=== PATIENT | female | born 1985 | race Caucasian/White ===

== ENCOUNTER 2016-09-14 10:04 | Day surgery (SDC) | payer BC ==
--- NOTE | ~2016-09-14 | EGD ---
EGD REPORT [facility] [address] [address] NAME: RONA GERONIMO : [birth year] STATUS : REG [facility]#: [id number] AGE: 31 ADM/REG DATE : 09/14/16 MR#: [id number] REPORT SERV DATE: 09/14/16 DICTATED BY: DATE: REPORT STATUS : Draft TRANSCRIBED BY: [employer] DATE: 09/14/16 [facility] Patient Name: Rona Geronimo Date of : 1985 Attending MD: SARAH BREWER MD Procedure Date No Time: 09/14/2016 Procedure: Colonoscopy Indications: Abdominal pain, Abnormal CT of the GI tract, Change in bowel habits Medicines: Monitored Anesthesia Care Complications: No immediate complications. Procedure: Pre-Anesthesia Assessment: - ASA Grade Assessment: II - A patient with mild systemic disease. After I obtained informed consent, the scope was passed under direct vision. Throughout the procedure, the patient's blood pressure, pulse, and oxygen saturations were monitored continuously. The PCF [id number] was introduced through the anus and advanced to the cecum, identified by appendiceal orifice and ileocecal valve. The colonoscopy was performed without difficulty. The patient tolerated the procedure well. The quality of the bowel preparation was excellent. Findings: The perianal and digital rectal examinations were normal. The colon (entire examined portion) was moderately redundant. No other significant abnormalities were identified in a careful examination of the remainder of the colon. There is no endoscopic evidence of diverticula, inflammation, mass, polyps, ulcerations or angioectasia in the entire colon. No additional abnormalities were found on retroflexion. Impression: - Redundant colon. Recommendation: - Patient has a contact number available for emergencies. The signs and symptoms of potential delayed complications were discussed with the patient. Return to normal activities tomorrow. Written discharge instructions were provided to the patient. - Return to previous diet. - Discharge patient to home. - Continue present medications. - Repeat colonoscopy at age 48 for screening purposes. - Use probiotic such as OyaGen daily. EGD REPORT [address] [address] NAME: RONA GERONIMO : [birth year] STATUS : REG [facility]#: [id number] AGE: 31 ADM/REG DATE : 09/14/16 MR#: [id number] REPORT SERV DATE: 09/14/16 DICTATED BY: DATE: REPORT STATUS : Draft TRANSCRIBED BY: [employer] DATE: 09/14/16 Start Linzess in low dose tomorrow or day after (sent electronically). Procedure Code(s): --- Professional --- 11496, Colonoscopy, flexible, proximal to splenic flexure; diagnostic, with or without collection of specimen(s) by brushing or washing, with or without colon decompression (separate procedure) Diagnosis Code(s): --- Professional --- Q43.8, Other specified congenital malformations of intestine R10.9, Unspecified abdominal pain R93.3, Abnormal findings on diagnostic imaging of other parts of digestive tract R19.4, Change in bowel habit CPT copyright 2013 [employer]. All rights reserved. The codes documented in this report are preliminary and upon braille coder review may be revised to meet current compliance requirements. SARAH BREWER MD 09/14/2016 11:20 AM This report has been signed electronically. Number of Addenda: 0 Note Initiated On: 09/14/2016 10:49 AM Scope Withdrawal Time 0 hours 9 minutes 21 seconds [id number] [id number]
--- NOTE | ~2016-09-14 | EGD ---
EGD REPORT [facility] [address] [address] NAME: RONA GERONIMO : [birth year] STATUS : REG [facility]#: [id number] AGE: 31 ADM/REG DATE : 09/14/16 MR#: [id number] REPORT SERV DATE: 09/14/16 DICTATED BY: DATE: REPORT STATUS : Draft TRANSCRIBED BY: [employer] DATE: 09/14/16 [facility] Patient Name: Rona Geronimo Date of : 1985 Attending MD: SARAH BREWER MD Procedure Date No Time: 09/14/2016 Procedure: Upper GI endoscopy Indications: Generalized abdominal pain, Abdominal bloating Medicines: Monitored Anesthesia Care Complications: No immediate complications. Procedure: Pre-Anesthesia Assessment: - ASA Grade Assessment: II - A patient with mild systemic disease. After obtaining informed consent, the endoscope was passed under direct vision. Throughout the procedure, the patient's blood pressure, pulse, and oxygen saturations were monitored continuously. The GIF H190 [id number] was introduced through the mouth, and advanced to the third part of duodenum. The upper GI endoscopy was accomplished without difficulty. The patient tolerated the procedure well. Findings: The examined esophagus was normal. There is no endoscopic evidence of Barbosa's esophagus, areas of erosion, hiatus hernia, ulcerations or varices in the entire esophagus. The entire examined stomach was normal. There is no endoscopic evidence of erythema, mucosal abnormalities, ulceration or stenosis in the entire examined stomach. The examined duodenum was normal. Biopsies were taken with a cold forceps for histology. There is no endoscopic evidence of mucosal abnormalities, stenosis, ulceration or deformity in the entire examined duodenum. The cardia and gastric fundus were normal on retroflexion. Impression: - Normal esophagus. - Normal stomach. - Normal examined duodenum. Biopsied. Recommendation: - Patient has a contact number available for emergencies. The signs and symptoms of potential delayed complications were discussed with the patient. Return to normal activities tomorrow. Written discharge instructions were provided to the patient. - Return to previous diet. EGD REPORT [facility] [address] [place], [place] [address]. [address] NAME: RONA GERONIMO : [birth year] STATUS : REG [facility]#: [id number] AGE: 31 ADM/REG DATE : 09/14/16 MR#: [id number] REPORT SERV DATE: 09/14/16 DICTATED BY: DATE: REPORT STATUS : Draft TRANSCRIBED BY: [employer] DATE: 09/14/16 - Discharge patient to home. - Continue present medications. - Await pathology results. Procedure Code(s): --- Professional --- 36779, Esophagogastroduodenoscopy, flexible, transoral; with biopsy, single or multiple Diagnosis Code(s): --- Professional --- R10.84, Generalized abdominal pain R14.0, Abdominal distension (gaseous) CPT copyright 2013 [employer]. All rights reserved. The codes documented in this report are preliminary and upon orthopedic coder review may be revised to meet current compliance requirements. ASRAH BREWER MD 09/14/2016 11:04 AM This report has been signed electronically. Number of Addenda: 0 Note Initiated On: 09/14/2016 10:54 AM Scope Withdrawal Time 0 hours 0 minutes [address] [place], [place] [address] [address]
[~2016-09-14 10:04] MED LIST: AUG875 PO; ELDERTONIC PO; LAMICTAL10 PO; MULTIPLE VIT PO; PROBIOTIC PO; RITALIN5 PO; SUDAFE1 OR; VITAMIN D1000 UNI1 PO
[2017-02-21] MEDS ORDERED: NEUR100 PO (13:26)
[2017-02-21] MEDS ORDERED: METHOC500B PO (13:26)
[2017-02-21] MEDS ORDERED: MOTRIN IB200 MG PO (13:26)
[2017-02-21] MEDS ORDERED: ULTRAM50 PO (13:26)
== END 2016-09-14 23:59 | disposition home or self-care (01) ==
LOC: DMU 10:04
PROVIDERS: Internal Medicine Gastroenterology
PROC: 0DJD8ZZ Inspection of Lower Intestinal Tract, Via Natural or Artificial Opening Endoscopic (ICD-10-PCS; principal; 2016-09-14 12:00)
PROC: 0DB98ZX Excision of Duodenum, Via Natural or Artificial Opening Endoscopic, Diagnostic (ICD-10-PCS; 2016-09-14 12:00)
DX: K29.80 Duodenitis without bleeding (principal); R93.3 Abnormal findings on diagnostic imaging of other parts of digestive tract; Q43.9 Congenital malformation of intestine, unspecified; Z86.69 Personal history of other diseases of the nervous system and sense organs; Z90.89 Acquired absence of other organs; Z98.890 Other specified postprocedural states
CPT/HCPCS: 84703; 88305